=== PATIENT | male | born 2000 ===

== ENCOUNTER 2020-10-26 17:47 | Emergency (ER) | payer SELFPAY ==
[2020-10-26 18:12] VITALS: BP 137/77
--- NOTE | 2020-10-26 18:51 | Event Note ---
ED Screening Note Date of service: 10/26/20 Time: 18:49 ED Screening Note: 20-year-old -Chinese male presents to the emergency room stating that he had vomited up blood x2 today. Patient reports that the amount was greater than a tablespoon. Patient is able to drink stas shakir. Denies any abdominal pain. Denies any past medical history. This initial assessment/diagnostic orders/clinical plan/treatment(s) is/are subject to change based on patients health status, clinical progression and re- assessment by fellow clinical providers in the ED. Further treatment and workup at subsequent clinical providers discretion. Patient/guardian urged not to elope from the ED as their condition may be serious if not clinically assessed and managed. Initial orders include:
== END 2020-10-26 22:06 | disposition left against medical advice (07) ==
LOC: ED 17:47
DX: K92.0 Hematemesis (principal); Z53.21 Procedure and treatment not carried out due to patient leaving prior to being seen by health care provider